=== PATIENT | male | born 1995 | race Two or more races ===

== ENCOUNTER 2022-01-21 04:28 | Emergency (ER) | payer MEDICAID ==
[~2022-01-21] VITALS: Ht 190.5 cm; Wt 110.0 kg
[2022-01-21] MEDS ORDERED: TETANUS-DIPTH-ACEL PERTUSSIS 0.5ML SYR Tdap IM ONE (06:45)
[2022-01-21] MEDS ORDERED: LIDOCAINE W/ EPINEPHRINE 1% 20ML VIAL SC ONE (07:00)
[2022-01-21] MEDS ORDERED: LIDOCAINE W/ EPINEPHRINE 2% INJ 20ML VIAL SC ONE (07:00)
[2022-01-21] MEDS ORDERED: CEPHALEXIN 250 MG CAP PO ONE (08:15)
[2022-01-21] MEDS ORDERED: CEPH500C PO (08:15)
[2022-01-21 08:25] VITALS: BP 113/74
[2022-01-21] MEDS ORDERED: NEOMYCIN-BACITRACIN-POLYM 15GM TOP OINT TOP ONE (08:36)
[2022-01-21] MEDS ORDERED: NEOMYCIN-BACITRACIN-POLYM 15GM TOP OINT TOP SCH (10:00)
== END 2022-01-21 08:50 | disposition home or self-care (01) ==
LOC: ER 04:34
DX: S01.111A Laceration without foreign body of right eyelid and periocular area, initial encounter (principal); Y04.2XXA Assault by strike against or bumped into by another person, initial encounter; Y93.89 Activity, other specified; Y92.89 Other specified places as the place of occurrence of the external cause; Y99.8 Other external cause status
CPT/HCPCS: 12013; 70450; 71045; 71250; 90471; 90715